=== PATIENT | female | born 2000 | race Hispanic/Latino ===

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

== ENCOUNTER 2021-04-22 07:37 | Emergency (ER) | payer MEDICAID ==
[~2021-04-22] VITALS: Ht 157.5 cm; Wt 65.8 kg
[~2021-04-22 07:37] MED LIST: PREN1TAB63 PO
[2021-04-22 07:38] VITALS: BP 107/72
[2021-04-22] MEDS ORDERED: HYDROXYZINE 25 MG TABLET PO ONE (08:30)
[2021-04-22] MEDS ORDERED: HYDR25CA PO (08:58)
[2021-04-22 09:17] LABS: APPEARANCE,URINE CLOUDY (CLEAR); BILIRUBIN,URINE NEGATIVE (NEGATIVE); COLOR,URINE YELLOW (YELLOW); GLUCOSE, URINE (UA) NEGATIVE (NEGATIVE); KETONES,URINE >=80 mg/dL (NEGATIVE); LEUKOCYTE ESTERASE ,URINE MODERATE (NEGATIVE); NITRATE,URINE NEGATIVE (NEGATIVE); OCCULT BLOOD,URINE NEGATIVE (NEGATIVE); PH,URINE 6.5 (5.0-8.0); PROTEIN,URINE TRACE mg/dL (NEGATIVE)
[2021-04-22 09:25] LABS: AMPHET/METH SCREEN,URINE NEGATIVE (NEGATIVE); BARBITURATE SCREEN, URINE NEGATIVE (NEGATIVE); BENZODIAZEPINES SCREEN,URINE NEGATIVE (NEGATIVE); CANNABINOID SCREEN,URINE POSITIVE (NEGATIVE); COCAINE SCREEN,URINE NEGATIVE (NEGATIVE); OPIATE SCREEN,URINE NEGATIVE (NEGATIVE); PHENCYCLIDINE SCREEN,URINE NEGATIVE (NEGATIVE)
[2021-04-22 09:30] LABS: BACTERIA,URINE Rare /HPF (None Seen); RBC,URINE 0-1 /HPF (0-1); SQUAMOUS EPITHELIAL CELL,UR Many /HPF (0-2)
[2021-04-22] MEDS ORDERED: LORAZEPAM 1 MG TABLET ONE (09:38)
== END 2021-04-22 10:02 | disposition home or self-care (01) ==
LOC: EDH 07:37
DX: F41.9 Anxiety disorder, unspecified (principal); G40.909 Epilepsy, unspecified, not intractable, without status epilepticus; Z79.899 Other long term (current) drug therapy
CPT/HCPCS: 80305; 81001; 87088

== ENCOUNTER 2021-05-15 19:29 | Emergency (ER) | payer MEDICAID ==
[~2021-05-15] VITALS: Ht 154.9 cm; Wt 68.0 kg
[~2021-05-15 19:29] MED LIST changes: +HYDR25CA PO
[2021-05-15 19:31] VITALS: BP 116/59
== END 2021-05-15 21:08 | disposition left against medical advice (07) ==
LOC: EDH 19:29
DX: R05 Cough (principal); R09.81 Nasal congestion; Z53.21 Procedure and treatment not carried out due to patient leaving prior to being seen by health care provider

== ENCOUNTER 2021-06-01 04:48 | Emergency (ER) | payer MEDICAID ==
[2021-06-01 04:51] VITALS: BP 99/61
[2021-06-01] MEDS ORDERED: BUDE10.26 IH (09:03)
[2021-06-01] MEDS ORDERED: ALBUHFA IH (09:03)
[2021-06-01] MEDS ORDERED: FEXO-23 PO (09:03)
== END 2021-06-01 09:14 | disposition home or self-care (01) ==
LOC: EDH 04:48
DX: R05 Cough (principal); R09.81 Nasal congestion; Z20.822 Contact with and (suspected) exposure to COVID-19
CPT/HCPCS: 87635; 87804 ×2; 87880; 99283; C9803

== ENCOUNTER 2024-10-06 09:34 | Emergency (ER) | payer BC, MEDICAID ==
[~2024-10-06] VITALS: Ht 157.5 cm; Wt 76.2 kg
[~2024-10-06 09:34] MED LIST changes: -HYDR25CA PO; +LEVE-43 PO
[2024-10-06 10:53] LABS: APPEARANCE,URINE CLEAR (CLEAR); BILIRUBIN,URINE NEGATIVE (NEGATIVE); COLOR,URINE COLORLESS (YELLOW); GLUCOSE, URINE (UA) NEGATIVE (NEGATIVE); KETONES,URINE NEGATIVE (NEGATIVE); LEUKOCYTE ESTERASE ,URINE 250 Leu/uL (NEGATIVE); NITRATE,URINE NEGATIVE (NEGATIVE); OCCULT BLOOD,URINE LARGE (NEGATIVE); PROTEIN,URINE NEGATIVE (NEGATIVE); UROBILINOGEN,URINE 0.2 mg/dL (0.2-1.0)
[2024-10-06 10:56] LABS: ADD UA MICROSCOPIC YES; HCG,QUALITATIVE URINE POSITIVE (NEGATIVE)
[2024-10-06 11:02] LABS: BACTERIA,URINE RARE /HPF (None Seen); MUCUS,URINE RARE LPF (None Seen); RBC,URINE 51-100 /HPF (0-1); SQUAMOUS EPITHELIAL CELL,UR FEW /HPF (0-2)
[2024-10-06 11:08] LABS: BASOPHILS # (AUTO) 0.08 K/uL (0.00-0.20); BASOPHILS % (AUTO) 0.7 % (0.0-5.0); EOSINOPHILS # (AUTO) 0.87 K/uL (0.00-0.70); EOSINOPHILS % (AUTO) 7.8 % (0.0-8.0); HEMATOCRIT 38.7 % (36-48); IMMATURE GRANULOCYTE ABSOLUTE 0.05 K/uL (0-1); LYMPHOCYTES # (AUTO) 1.4 K/uL (1.0-4.8); LYMPHOCYTES % (AUTO) 12.2 % (21.0-51.0); MEAN CORPUSCULAR HGB CONC 33.9 g/dL (32.0-36.0); MEAN CORPUSCULAR VOLUME 88.8 fL (79-99); MONOCYTES # (AUTO) 0.5 K/uL (0.1-1.0); MONOCYTES % (AUTO) 4.1 % (3.0-13.0); NEUTROPHILS # (AUTO) 8.3 K/uL (1.8-7.7); NEUTROPHILS % (AUTO) 74.7 % (40.0-77.0); PLATELET COUNT (AUTO) 252 K/uL (130-400); RED BLOOD CELL COUNT(AUTO) 4.36 MIL/uL (4.00-5.50); RED CELL DISTRIBUTION WIDTH 12.2 % (11.0-15.5); WHITE BLOOD COUNT (AUTO) 11.1 K/uL (4.8-10.8)
[2024-10-06 11:17] LABS: CREATININE 0.6 mg/dL (0.5-1.0); POTASSIUM 4.1 mmol/L (3.5-5.1)
[2024-10-06 11:43] LABS: ALBUMIN 2.5 g/dL (3.5-5.0); BILIRUBIN,DIRECT 0.1 mg/dL (0.0-0.3); BILIRUBIN,TOTAL 0.2 mg/dL (0.2-1.0)
--- NOTE | 2024-10-06 12:11 | ERN ---
ED Note History of Present Illness Stated Complaint: POSSIBLE MISCARRIAGE Chief Complaint: Pelvic Pain Time Seen by MD: 09:46 Dictation: 24-year-old female with a history of epilepsy on Keppra presents to the ED for evaluation of pelvic pain onset two days ago. Patient reports vaginal bleeding, abdominal cramping, nasal congestion, cough, and seizure, but denies any other associated symptoms at this time. Patient states she is unsure if she was but believes she possibly had a miscarriage since she passed a couple of blood clots. . Patient mentioned she did not take a home test but had not had her period in the past four months. She also mentioned she had a seizure episode two days ago. Allergies: Coded Allergies: No Known Drug Allergies (Unverified Allergy, Unknown, 11/08/19) Home Meds Reported Medications Levetiracetam (Keppra) 500 Mg Tablet, 500 MG PO HS for 30 Days, #60 TAB 0 Refills 11/02/21 Vit/Iron Fumarate/FA ( Tablet) 1 Each Tablet, 1 EACH PO DAILYDINNER, TAB 08/11/20 Past Medical History Past Medical History: Seizure, Other Additional Past Medical Hx: BRAIN SURGERY AT 11 DAYS OLD FOR BLOOD CLOT Surgical History: Other Surgical History Other: BRAIN SURGERY Family History: HTN Social History: Negative, Lives with family History: Not Applicable LMP: Oct 04, 2024 : 3 Para: 2 Aborts: 0 Review of System Dictation Constitutional: Negative for fever,chills, and weight loss Eyes: Negative for injury, pain,redness, and discharge ENT: Positive for nasal congestion Negative for injury,pain or swelling Cardiovascular: Negative for chest pain, palpitations, and edema Respiratory: Positive for cough, Negative for shortness of breath, and wheezing, Abdomen/GI: Positive for pelvic pain, abdominal cramping negative for nausea, vomiting, diarrhea, and constipation Back: Negative for injury and pain : Positive for vaginal bleeding Negative for injury, and discharge MS/Extremity: Negative for injury and deformity Skin: Negative for rash, and discoloration Neuro: Positive for seizure Negative for headache, weakness, numbness, tingling Psych: Negative for suicide ideation, homicidal ideation, and hallucinations Initial Vital Sign VS Vital Signs Date Time Temp Pulse Resp B/P (MAP) Pulse Ox O2 Delivery O2 Flow Rate FiO2 10/06/24 09:39 99.0 111 18 110/68 98 Room Air 0 10/06/24 10:17 21 Physical Exam Dictation General: awake, alert, NAD Head/Face: Normocephalic, atraumatic Eyes: PERRL, EOMI, vision at baseline ENT: oral cavity clear, TMs clear, no signs of infection Neck: Trachea midline, supple, no nuchal rigidity Cardiovascular: RRR, normal S1/S2, No MRGs, no JVD Respiratory: CTAB, no respiratory distress, No rales or wheezes Abdomen: Soft, mild suprapubic tenderness, non-distended, normal bowel sounds, no guarding or rebound. Skin: Warm, dry, normal turgor, no rash MS/Extremity: Pulses equal, no cyanosis, neurovascular intact, FROM Neuro: COAx4, GCS 15, strength 5/5, CN 2-12 intact, normal cerebellar exam, normal gait, Psych: Normal behavior, mood, and affect normal Results (Laboratory/Radiology) Laboratory/Radiology Laboratory Tests Test 10/06/24 10:27 10/06/24 10:56 Urine Color COLORLESS (YELLOW) Urine Appearance CLEAR (CLEAR) Urine pH 8.0 (5.0-8.0) Urine Specific [place] 1.014 (1.001-1.031) Urine Protein NEGATIVE mg/dL (NEGATIVE) Urine Glucose (UA) NEGATIVE mg/dL (NEGATIVE) Urine Ketones NEGATIVE mg/dL (NEGATIVE) Urine Occult Blood LARGE (NEGATIVE) H Urine Nitrate NEGATIVE (NEGATIVE) Urine Bilirubin NEGATIVE mg/dL (NEGATIVE) Urine Urobilinogen 0.2 mg/dL (0.2-1.0) Urine Leukocyte Esterase 250 [place]/uL (NEGATIVE) H Urine RBC 51-100 /HPF (0-1) H Urine WBC 11-25 /HPF (0-1) H Urine Squamous Epithelial Cells FEW /HPF (0-2) Urine Bacteria RARE /HPF (None Seen) Urine HCG, Qualitative POSITIVE (NEGATIVE) H White Blood Count 11.1 K/uL (4.8-10.8) H Red Blood Count 4.36 MIL/uL (4.00-5.50) Hemoglobin 13.1 g/dL (12.0-16.0) Hematocrit 38.7 % (36-48) Mean Corpuscular Volume 88.8 fL (79-99) Mean Corpuscular Hemoglobin 30.0 pg (27.0-33.0) Mean Corpuscular Hemoglobin Concent 33.9 g/dL (32.0-36.0) Red Cell Distribution Width 12.2 % (11.0-15.5) Platelet Count 252 K/uL (130-400) Mean Platelet Volume 10.0 fL (7.5-10.5) Immature Granulocyte % (Auto) 0.5 % (0-1) Neutrophils (%) (Auto) 74.7 % (40.0-77.0) Lymphocytes (%) (Auto) 12.2 % (21.0-51.0) L Monocytes (%) (Auto) 4.1 % (3.0-13.0) Eosinophils (%) (Auto) 7.8 % (0.0-8.0) Basophils (%) (Auto) 0.7 % (0.0-5.0) Neutrophils # (Auto) 8.3 K/uL (1.8-7.7) H Lymphocytes # (Auto) 1.4 K/uL (1.0-4.8) Monocytes # (Auto) 0.5 K/uL (0.1-1.0) Eosinophils # (Auto) 0.87 K/uL (0.00-0.70) H Basophils # (Auto) 0.08 K/uL (0.00-0.20) Absolute Immature Granulocyte (auto 0.05 K/uL (0-1) Nucleated Red Blood Cells 0.0 % (0.0-0.19) Sodium Level 139 mmol/L (136-145) Potassium Level 4.1 mmol/L (3.5-5.1) Chloride Level 103 mmol/L (101-111) Carbon Dioxide Level 30 mmol/L (21-32) Blood Urea Nitrogen 2 mg/dL (7-18) L Creatinine 0.6 mg/dL (0.5-1.0) Glomerular Filtration Rate Calc 129 mL/min (>90) Random Glucose 84 mg/dL (70-105) Total Calcium 8.9 mg/dL (8.5-10.1) Total Bilirubin 0.2 mg/dL (0.2-1.0) Direct Bilirubin 0.1 mg/dL (0.0-0.3) Aspartate Amino Transf (AST/SGOT) 37 U/L (10-37) Alanine Aminotransferase (ALT/SGPT) 36 U/L (12-78) Alkaline Phosphatase 69 U/L (50-136) Total Protein 6.0 g/dL (6.0-8.3) Albumin 2.5 g/dL (3.5-5.0) L Human Chorionic Gonadotropin, Quant 3558 mIU/mL (0-5) H Labs Reviewed?: Yes ED Course ED Course Orders Procedure Category Date Status Time Urinalysis Profile LAB 10/06/24 Complete 09:48 ,Urine Test LAB 10/06/24 Complete 09:48 Hcg,Quantitative LAB 10/06/24 Complete 10:49 Basic Metabolic Panel LAB 10/06/24 Complete 10:49 Cbc With Differential LAB 10/06/24 Complete 10:49 Hepatic Function Panel LAB 10/06/24 Complete 10:49 Culture Urine PRINCESS 10/06/24 In Process 10:57 Us Ob <14 Weeks US 10/06/24 Resulted 11:56 Vital Signs Date Time Temp Pulse Resp B/P (MAP) Pulse Ox O2 Delivery O2 Flow Rate FiO2 10/06/24 13:26 98.8 98 16 110/68 98 Room Air* 0 21 10/06/24 10:17 99.0 111 18 110/68 98 Room Air* 0 21 10/06/24 09:39 99.0 111 18 110/68 98 Room Air 0 Medical Decision Making MDM MDM: Differential diagnosis: Pelvic pain, spontaneous miscarriage Risk of complication and/or morbidity or mortality of patient management: None Medications-Per medication reconciliation Need for hospitalization: Patient does not meet criteria for hospitalization. Need for emergency major/minor surgery: No There are no social concerns with this patient. I independently interpreted the test that were performed, results were reviewed by me and considered findings on radiology if ordered. Medical management and examination interpretation discussions were had by me with other qualified healthcare professionals as indicated for the patient's care. DX & DISP Disposition: Discharge Departure Impression: Primary Impression: Missed Condition: Stable Referrals: NONE (PCP) ROHINI MOREAU MD Time of Disposition: 13:13 SCAR MACEDO MD Oct 06, 2024 12:11
--- NOTE | 2024-10-06 12:49 | HMCIMG ---
US OB <14 WEEKS HISTORY: Compromising COMPARISON: None TECHNIQUE: Obstetrical ultrasound study was performed. FINDINGS: The uterus measures 10.3 x 5 x 6.3 centimeter. Right ovary measures 2.5 x 1.5 x 1.9 centimeter. Left ovary measures 2.6 x 1.8 x 2.1 centimeter. Flow is seen in both ovaries. No evidence of intrauterine gestational sac is seen. In a patient with positive test, differential diagnosis would include early versus ectopic versus missed . Beta-hCG correlation is recommended. No fluid is seen in the cul-de-sac. IMPRESSION: 1. No evidence of intrauterine gestational sac is seen. In a patient with positive test, differential diagnosis would include early versus ectopic versus missed . Beta-hCG correlation is recommended.
[2024-10-06 13:26] VITALS: BP 110/68; PULSE 98; RESP 16; TEMP 98.8; O2SAT 98
== END 2024-10-06 13:38 | disposition home or self-care (01) ==
LOC: EDH 09:34
DX: O02.1 Missed abortion (principal); Z79.899 Other long term (current) drug therapy; Z98.890 Other specified postprocedural states
CPT/HCPCS: 36415; 76801; 80048; 80076; 81001; 81025; 84702; 85025; 87086; 99284